=== PATIENT | female | born 1950 | race Caucasian/White ===

== ENCOUNTER → 2020-09-15 | Outpatient (CLI) | payer MEDICARE, BC ==
[~2020-09-15] MED LIST: CHLO500 PO; HORMONE CREAM; META800 PO; METPRE4DP PO; RANI150 PO; Ultram50 MG PO
[2020-09-17 12:08] LABS: ADENOVIRUS F 40/41 Not Detected (Not Detected); ASTROVIRUS Not Detected (Not Detected); C DIFFICILE TOXIN A/B Not Detected (Not Detected); CAMPYLOBACTER Not Detected (Not Detected); CRYPTOSPORIDIUM Not Detected (Not Detected); CYCLOSPORA CAYETANENSIS Not Detected (Not Detected); ENTAMOEBA HISTOLYTICA Not Detected (Not Detected); ENTEROAGGREGATIVE E COLI Not Detected (Not Detected); ENTEROPATHOGENIC E COLI Not Detected (Not Detected); ENTEROTOXIGENIC E COLI Not Detected (Not Detected); GIARDIA LAMBLIA Not Detected (Not Detected); NOROVIRUS GI/GII Not Detected (Not Detected); PLESIOMONAS SHIGELLOIDES Not Detected (Not Detected); ROTAVIRUS A Not Detected (Not Detected); SALMONELLA Not Detected (Not Detected); SAPOVIRUS Not Detected (Not Detected); SHIGA-TOXIN-PRODUCING E COLI Not Detected (Not Detected); SHIGELLA/ENTEROINVASIVE E COLI Not Detected (Not Detected); VIBRIO Not Detected (Not Detected); VIBRIO CHOLERAE Not Detected (Not Detected); YERSINIA ENTEROCOLITICA Not Detected (Not Detected)
== END ==
LOC: LAB SHORT 15:55 → OLS 15:55
PROVIDERS: Family Medicine
DX: K52.9 Noninfective gastroenteritis and colitis, unspecified (principal)
CPT/HCPCS: 0097U; 83993

== ENCOUNTER 2021-02-20 12:07 | Day surgery (SDC) | payer MEDICARE, BC ==
[~2021-02-20 12:07] MED LIST changes: +ASPIR 8181 MG PO; +Crestor20 MG PO; +FURO20 PO; +LOSARTAN-HCTZ1 EACH PO; +MERIBIN5 MG PO; +Natrol Alpha 3300 MG PO; +TIOT18 INH; +VITAMIN D310 MC5 PO; +ZYRTEC10 M2 PO
== END 2021-02-20 14:36 | disposition home or self-care (01) ==
LOC: ORSCSDS 12:07
PROVIDERS: Student in an Organized Health Care Education/Training Program
PROC: 0DJD8ZZ Inspection of Lower Intestinal Tract, Via Natural or Artificial Opening Endoscopic (ICD-10-PCS; principal; 2021-02-20 13:30)
DX: K92.1 Melena (principal); K64.8 Other hemorrhoids; Z86.010 Personal history of colon polyps; I10 Essential (primary) hypertension; G47.33 Obstructive sleep apnea (adult) (pediatric); J44.9 Chronic obstructive pulmonary disease, unspecified; E66.01 Morbid (severe) obesity due to excess calories; Z68.41 Body mass index [BMI] 40.0-44.9, adult; Z79.899 Other long term (current) drug therapy; Z79.82 Long term (current) use of aspirin; Z87.891 Personal history of nicotine dependence
CPT/HCPCS: J2704; J7120

== ENCOUNTER 2021-05-26 07:19 | Observation (INO) | payer MEDICARE, BC ==
[~2021-05-26] VITALS: Ht 162.6 cm; Wt 112.2 kg
[~2021-05-26 07:19] MED LIST changes: +ERGO400 PO; -VITAMIN D310 MC5 PO
[2021-05-26 08:33] LABS: BASOPHILS ABSOLUTE AUTO 0.04 K/mm3 (0.00-0.23); BASOPHILS PERCENT AUTO 1 % (0-2); EOSINOPHILS ABSOLUTE AUTO 0.32 K/mm3 (0.00-0.68); EOSINOPHILS PERCENT AUTO 5 % (0-6); Hematocrit 39.2 % (33.0-51.0); Hemoglobin 12.6 g/dL (11.5-16.0); IMMATURE GRAN ABSOLUTE AUTO 0.01 K/mm3 (0.00-0.10); IMMATURE GRAN PERCENT AUTO 0 % (0-1); LYMPHOCYTES ABSOLUTE AUTO 1.93 K/mm3 (0.84-5.20); LYMPHOCYTES PERCENT AUTO 32 % (21-46); MONOCYTES ABSOLUTE AUTO 0.38 K/mm3 (0.16-1.47); MONOCYTES PERCENT AUTO 6 % (4-13); Mean Corpuscular HGB 30.7 pg (26.0-34.0); Mean Corpuscular HGB Conc 32.1 g/dL (31.5-36.5); Mean Corpuscular Volume 96 fL (80-100); Mean Platelet Volume 11.5 fL (9.1-12.4); NEUTROPHILS ABSOLUTE AUTO 3.32 K/mm3 (1.96-9.15); NEUTROPHILS PERCENT AUTO 55 % (41-73); Platelet Count 166 K/mm3 (150-400); RDW Coefficient Variation 13.4 % (11.7-14.2); RDW Standard Deviation 47.6 fL (35.1-46.3)
[2021-05-26 08:58] LABS: Alanine Aminotransfer (ALT/SGP 24 U/L (12-78); Albumin, Blood 3.6 g/dL (3.4-5.0); Albumin/Globulin Ratio 1.3 (0.8-1.8); Alk Phos 43 U/L (50-136); Anion Gap 4 mmol/L (6-16); Aspartate Aminotrans (AST/SGOT 20 U/L (12-37); Bilirubin, Total 0.5 mg/dL (0.1-1.0); Blood Urea Nitrogen 20 mg/dL (8-24); Bun/Creatinine Ratio 27.5 (12.0-20.0); CO2, Blood 26 mmol/L (21-32); Calcium, Blood 9.3 mg/dL (8.5-10.1); Chloride, Blood 111 mmol/L (98-108); Creatinine, Blood 0.73 mg/dL (0.40-1.00); Globulin, Blood 2.8 g/dL (2.2-4.0); Glomerular Filtration Rate >60 (60-); Glucose, Blood 99 mg/dL (70-99); Potassium, Blood 4.3 mmol/L (3.5-5.5); Sodium, Blood 141 mmol/L (136-145); Total Protein, Blood 6.4 g/dL (6.4-8.2); Troponin I <0.015 ng/mL (0.000-0.040)
--- NOTE | 2021-05-26 14:08 | NUR ---
THIS STEM ASSEMBLER WAS ALERTED BY TELE THAT PT HR WAS LOW 48. PT IS OFF UNIT WITH NUC MED FOR FIRST PART OF TRESS TEST. CONTACTED DR. GARNER FOR DIRECTION. HE REQUESTED FOR THE PT TO COME BACK TO ROOM TO BE MONITORED. NUC MED TECH WAS NOTIFIED. I WAS ADVISED THAT OUR PT WAS IN THE PROCESS OF BEING SCANNED, MEANING PART ONE IS COMPLETE AND PT WOULD BE BACK ON THE UNIT WITHIN MINUTES. CALLED CASINO DEALER AND HR BACK IN IN THE 59-65 RANGE. SHE WILL REACH OUT IF THE PT DIPS AGAIN.....
--- NOTE | 2021-05-26 17:53 | NUR ---
PT RESTING IN BED WITH FAMILY AT SIDE. PT REMAINS ALERT AND ORIENTED X4, IND IN ROOM AND CALLS TO GET NEEDS MET. PT RUNS BRADYCARDIC IN THE 50'S AT BASELINE PER PT AND DAUGHTER. PT MAKES NO COMPLAINTS OF CHEST PAIN, SOB OR N/V AT THIS TIME. PART ONE OF STRESS TEST COMPLETED THIS SHIFT. PT TOLERATING PO FLUID AND NUTRITION WELL. NO CAFFEINE AFTER 1900 AND NPO AFTER MIDNIGHT FOR STRESS TEST PART TWO. PT BED IS IN LOW POSITION AND CALL LIGHT WITHIN REACH. STAFF WILL CONTINUE TO MONITOR FOR CHANGES.
--- NOTE | 2021-05-26 23:44 | NUR ---
2051 PT LYING IN BED, REPORTS CP OF 2/10, DESCRIBES AT TIGHTNESS. DELINED NTG AT THIS TIME. TELE SB AT 51. NO OTHER APPARENT SIGNS OF DISTRESS. CALL LIGHT IS IN REACH.
--- NOTE | 2021-05-27 03:30 | NUR ---
05/26/21 2330 PT LYING IN BED, AWAKE, WATCHING TV. NO APPARENT SIGNS OF DISTRESS. CALL LIGHT IS IN REACH.
--- NOTE | 2021-05-27 03:31 | NUR ---
0200 PT LYING IN BED, EYES CLOSED, APPEARS TO BE RESTING. WAKES EASILY TO VERBAL STIMULI. NO APPARENT SIGNS OF DISTRESS. CALL LIGHT IS IN REACH.
--- NOTE | 2021-05-27 03:32 | NUR ---
PT LYING IN BED, EYES CLOSED, APPEARS TO BE RESTING. BREATHING IS EVEN, UNLABORED. NO APPARENT SIGNS OF DISTRESS. CALL LIGHT IS IN REACH.
[2021-05-27 05:01] LABS: BASOPHILS ABSOLUTE AUTO 0.05 K/mm3 (0.00-0.23); BASOPHILS PERCENT AUTO 1 % (0-2); EOSINOPHILS ABSOLUTE AUTO 0.36 K/mm3 (0.00-0.68); EOSINOPHILS PERCENT AUTO 5 % (0-6); Hematocrit 42.4 % (33.0-51.0); Hemoglobin 13.5 g/dL (11.5-16.0); IMMATURE GRAN ABSOLUTE AUTO 0.01 K/mm3 (0.00-0.10); IMMATURE GRAN PERCENT AUTO 0 % (0-1); LYMPHOCYTES ABSOLUTE AUTO 2.41 K/mm3 (0.84-5.20); LYMPHOCYTES PERCENT AUTO 36 % (21-46); MONOCYTES ABSOLUTE AUTO 0.34 K/mm3 (0.16-1.47); MONOCYTES PERCENT AUTO 5 % (4-13); Mean Corpuscular HGB 30.5 pg (26.0-34.0); Mean Corpuscular HGB Conc 31.8 g/dL (31.5-36.5); Mean Corpuscular Volume 96 fL (80-100); Mean Platelet Volume 11.6 fL (9.1-12.4); NEUTROPHILS PERCENT AUTO 53 % (41-73); Platelet Count 191 K/mm3 (150-400); RDW Coefficient Variation 13.5 % (11.7-14.2); Red Blood Cell Count 4.42 M/mm3 (3.80-5.20); White Blood Cell Count 6.67 K/mm3 (4.00-11.30)
[2021-05-27 05:33] LABS: Alanine Aminotransfer (ALT/SGP 24 U/L (12-78); Albumin, Blood 3.7 g/dL (3.4-5.0); Albumin/Globulin Ratio 1.2 (0.8-1.8); Alk Phos 43 U/L (50-136); Anion Gap 2 mmol/L (6-16); Aspartate Aminotrans (AST/SGOT 18 U/L (12-37); Bilirubin, Total 0.4 mg/dL (0.1-1.0); Blood Urea Nitrogen 15 mg/dL (8-24); Bun/Creatinine Ratio 17.8 (12.0-20.0); CO2, Blood 30 mmol/L (21-32); Chloride, Blood 109 mmol/L (98-108); Creatinine, Blood 0.85 mg/dL (0.40-1.00); Globulin, Blood 3.1 g/dL (2.2-4.0); Glomerular Filtration Rate >60 (60-); Glucose, Blood 91 mg/dL (70-99); Sodium, Blood 141 mmol/L (136-145); Total Protein, Blood 6.8 g/dL (6.4-8.2)
--- NOTE | 2021-05-27 05:39 | NUR ---
PT IS AAO X 4, ON RA. REPORTED CP OF 2/10 THAT IS TIGHT, DECLINED NTG. TELE SB. SCD'S. PT ALSO DECLINED PAIN MEDS.
--- NOTE | 2021-05-27 06:17 | NUR ---
PT LYING IN BED, EYES CLOSED, APPEARS TO BE RESTING. BREATHING IS EVEN, UNLABORED. NO APPARENT SIGNS OF DISTRESS. CALL LIGHT IS IN REACH. NO OTHER CHANGES THIS SHIFT.
--- NOTE | 2021-05-27 15:09 | NUR ---
PATIENT D/C'D TO HOME WITH FAMILY. DC INSTRUCTIONS AND EDUCATION DISCUSSED WITH PATIENT AND COPY PROVIDED. PATIENT DENIES ANY FURTHER QUESTIONS OR CONCERNS. NO CHANGES MADE TO HOME MEDICATIONS.
== END 2021-05-27 15:10 | disposition home or self-care (01) ==
LOC: ER 07:19 → MEDS 07:20
PROVIDERS: Emergency Medicine; Student in an Organized Health Care Education/Training Program; ADMIT Internal Medicine
DX: R07.9 Chest pain, unspecified (principal); I10 Essential (primary) hypertension; R00.1 Bradycardia, unspecified; J98.11 Atelectasis; K21.9 Gastro-esophageal reflux disease without esophagitis; J44.9 Chronic obstructive pulmonary disease, unspecified; G47.33 Obstructive sleep apnea (adult) (pediatric); E78.5 Hyperlipidemia, unspecified; J30.2 Other seasonal allergic rhinitis; M79.89 Other specified soft tissue disorders; R06.00 Dyspnea, unspecified; Z88.5 Allergy status to narcotic agent; Z88.8 Allergy status to other drugs, medicaments and biological substances
CPT/HCPCS: 36415; 71045; 78452; 80053; 83690; 84484; 85025; 93005; 93010; 93017; 97116; 97161; A9270; A9500; J0280; J2405; J2785; J3010; J7030

== ENCOUNTER 2021-10-25 08:15 | Day surgery (SDC) | payer MEDICARE, BC ==
[~2021-10-25] VITALS: Ht 162.6 cm; Wt 109.8 kg
[2021-10-25] MEDS ORDERED: LOSA25 PO (08:46)
[2021-10-25] MEDS ORDERED: ZYRTEC10 M2 PO (08:46)
--- NOTE | 2021-10-25 10:54 | NUR ---
10/25/21 1054 Khushboo Isabel PT RESTING COMFORTABLY IN CHAIR. CALL LIGHT WITHIN REACH. TOLERATING PO FOOD AND FLUID. PT STATES SHE DOESN'T FEEL UP TO GETTING DRESSED YET. WILL GIVE PT A FEW MORE MINUTES TO "WAKE UP". WILL CONTINUE TO MONITOR.
== END 2021-10-25 11:30 | disposition home or self-care (01) ==
LOC: ORSCSDS 08:15
PROVIDERS: Obstetrics & Gynecology
PROC: 0UDB8ZX Extraction of Endometrium, Via Natural or Artificial Opening Endoscopic, Diagnostic (ICD-10-PCS; principal; 2021-10-25 09:30)
DX: N95.0 Postmenopausal bleeding (principal); D25.0 Submucous leiomyoma of uterus; N85.00 Endometrial hyperplasia, unspecified; I10 Essential (primary) hypertension; K21.9 Gastro-esophageal reflux disease without esophagitis; G47.33 Obstructive sleep apnea (adult) (pediatric); J44.9 Chronic obstructive pulmonary disease, unspecified; Z87.891 Personal history of nicotine dependence; Z79.899 Other long term (current) drug therapy; Z79.82 Long term (current) use of aspirin; E66.01 Morbid (severe) obesity due to excess calories; Z68.41 Body mass index [BMI] 40.0-44.9, adult
CPT/HCPCS: 88305; J0690; J1100; J1885; J2250; J2405; J2704; J3010

== ENCOUNTER 2021-12-18 06:54 | Day surgery (SDC) | payer MEDICARE, BC ==
[~2021-12-18] VITALS: Ht 160 cm; Wt 109.7 kg
[~2021-12-18 06:54] MED LIST changes: +LOSA25 PO
[2021-12-18] MEDS ORDERED: NAPR220 PO (07:17)
--- NOTE | 2021-12-18 07:52 | NUR ---
COMMUNICATED WITH PT. PT AGREES TO TAKE OXYCODONE DESPITE SENSITIVITY. DR MARQUEZ CONFIRMED WITH PT. OK TO GIVE OXYCODONE PER PT PER.
--- NOTE | 2021-12-18 18:31 | NUR ---
SHIFT SUMMARY PT ARRIVED TO UNIT AROUND 1130, VERY PAINFUL. PAIN HAS SINCE RESOLVED BUT C/O HEADACHE & FEELING VERY DROWSY. WAS ABLE TO WORK w/ THERAPY, VOID, & TOLERATE DIET.
[2021-12-19 04:45] LABS: BASOPHILS ABSOLUTE AUTO 0.01 K/mm3 (0.00-0.23); BASOPHILS PERCENT AUTO 0 % (0-2); EOSINOPHILS ABSOLUTE AUTO 0.01 K/mm3 (0.00-0.68); EOSINOPHILS PERCENT AUTO 0 % (0-6); Hematocrit 35.2 % (33.0-51.0); Hemoglobin 11.5 g/dL (11.5-16.0); IMMATURE GRAN ABSOLUTE AUTO 0.04 K/mm3 (0.00-0.10); IMMATURE GRAN PERCENT AUTO 0 % (0-1); LYMPHOCYTES ABSOLUTE AUTO 1.04 K/mm3 (0.84-5.20); LYMPHOCYTES PERCENT AUTO 9 % (21-46); MONOCYTES ABSOLUTE AUTO 0.61 K/mm3 (0.16-1.47); MONOCYTES PERCENT AUTO 5 % (4-13); Mean Corpuscular HGB 30.9 pg (26.0-34.0); Mean Corpuscular HGB Conc 32.7 g/dL (31.5-36.5); Mean Corpuscular Volume 95 fL (80-100); NEUTROPHILS PERCENT AUTO 86 % (41-73); Platelet Count 206 K/mm3 (150-400); RDW Coefficient Variation 13.3 % (11.7-14.2); RDW Standard Deviation 46.6 fL (35.1-46.3); Red Blood Cell Count 3.72 M/mm3 (3.80-5.20); White Blood Cell Count 12.21 K/mm3 (4.00-11.30)
[2021-12-19 04:56] LABS: Anion Gap 6 mmol/L (6-16); Blood Urea Nitrogen 21 mg/dL (8-24); Bun/Creatinine Ratio 26.2 (12.0-20.0); CO2, Blood 26 mmol/L (21-32); Calcium, Blood 8.6 mg/dL (8.5-10.1); Chloride, Blood 106 mmol/L (98-108); Glomerular Filtration Rate >60 (60-); Glucose, Blood 143 mg/dL (70-99); Sodium, Blood 138 mmol/L (136-145)
[2021-12-19] MEDS ORDERED: ASPI81CH PO (09:32)
[2021-12-19] MEDS ORDERED: Norco 7.5-3251 EACH PO (09:33)
--- NOTE | 2021-12-19 13:30 | NUR ---
DISCHARGE: PACKET PRINTED AND PT EDUCATED. IV DC'D WNL. PT GIVEN SCRIPTS EXTRA AQUCEL DRESSINGS. PT LEFT UNIT VIA WHEELCHAIR AT ABOUT 1230 WITH DEV ALELN.
== END 2021-12-19 13:00 | disposition home or self-care (01) ==
LOC: ORSCMMR 06:54 → ORD 08:15 → SURS 11:06 → ORSCMMR 11:06 → SURS 22:52 → ORSCMMR 12-19 13:00
PROVIDERS: Orthopaedic Surgery
PROC: 8E0Y0CZ Robotic Assisted Procedure of Lower Extremity, Open Approach (ICD-10-PCS; 2021-12-18)
PROC: 0SRC0JZ Replacement of Right Knee Joint with Synthetic Substitute, Open Approach (ICD-10-PCS; principal; 2021-12-18 08:15)
DX: M17.11 Unilateral primary osteoarthritis, right knee (principal); I10 Essential (primary) hypertension; J44.9 Chronic obstructive pulmonary disease, unspecified; G47.33 Obstructive sleep apnea (adult) (pediatric); K21.9 Gastro-esophageal reflux disease without esophagitis; E66.01 Morbid (severe) obesity due to excess calories; Z68.41 Body mass index [BMI] 40.0-44.9, adult; Z79.899 Other long term (current) drug therapy; Z79.82 Long term (current) use of aspirin
CPT/HCPCS: 27447; S2900; 36415; 73560-RT; 80048; 85025; 97110; 97116; 97162; 97530; A9270; C1776; J0171; J0690; J0735; J1100; J1170; J1885; J2250; J2405; J2704; J2795; J3010; J7120

== ENCOUNTER 2022-05-10 12:41 | Day surgery (SDC) | payer MEDICARE, BC ==
[~2022-05-10] VITALS: Ht 162.6 cm; Wt 114.3 kg
[~2022-05-10 12:41] MED LIST changes: +ASPI81CH PO; +NAPR220 PO; +Norco 7.5-3251 EACH PO
--- NOTE | 2022-05-10 14:08 | NUR ---
Ambulatory in Day Surgery. PT REPORTS HAVING CELSO SHAKE THIS AM, DR MARQUEZ NOTIFIED WHO REPORTS THAT THEY WILL PROCEED AND DO LOCAL ONLY. THIS IS WHAT THE PT UNDERSTOOD THE PLAN TO BE. History, Chart, Medications and Allergies reviewed before start of procedure.Lungs clear T/O to Auscultation. Pre-Op teaching done. Pt verbalizes understanding. Patient States Post-Procedure ride home has been arranged.
[2022-05-10] MEDS ORDERED: C COMPLEX1000 M1 PO (14:13)
--- NOTE | 2022-05-10 14:17 | NUR ---
REPORT TO N.S. WHO IS TAKING OVER CARE AT THIS TIME.
--- NOTE | 2022-05-10 15:51 | NUR ---
Discharge instructions reviewed with patient. Patient verbalizes understanding. Copy given to patient to take home. PT DENIES NEED FOR ANYTHING TO EAT OR PAIN PILL. TOLERATING WATER. RIDE HOME ON THE WAY.
--- NOTE | 2022-05-10 15:58 | NUR ---
PT DRESSED, EXTRA DRG SUPPLIES GIVEN TO PT. Discharged via wheelchair to private car for ride home.
== END 2022-05-10 16:03 | disposition home or self-care (01) ==
LOC: ORSCMMR 12:41 → ORD 14:00 → ORSCMMR 16:03
PROVIDERS: Orthopaedic Surgery
PROC: 01N50ZZ Release Median Nerve, Open Approach (ICD-10-PCS; principal; 2022-05-10 14:00)
DX: G56.02 Carpal tunnel syndrome, left upper limb (principal); I10 Essential (primary) hypertension; J44.9 Chronic obstructive pulmonary disease, unspecified; G47.33 Obstructive sleep apnea (adult) (pediatric); E78.5 Hyperlipidemia, unspecified; Z79.82 Long term (current) use of aspirin; Z79.899 Other long term (current) drug therapy
CPT/HCPCS: J2250; J2704; J2795; J3010; J7120

== ENCOUNTER 2023-12-18 11:28 | Inpatient (IN) | payer MEDICARE, BC ==
[2023-12-16 09:37] LABS: BASOPHILS ABSOLUTE AUTO 0.04 K/mm3 (0.00-0.23); BASOPHILS PERCENT AUTO 1 % (0-2); EOSINOPHILS ABSOLUTE AUTO 0.21 K/mm3 (0.00-0.68); EOSINOPHILS PERCENT AUTO 3 % (0-6); Hemoglobin 12.7 g/dL (11.5-16.0); IMMATURE GRAN ABSOLUTE AUTO 0.02 K/mm3 (0.00-0.10); IMMATURE GRAN PERCENT AUTO 0 % (0-1); LYMPHOCYTES ABSOLUTE AUTO 1.97 K/mm3 (0.84-5.20); LYMPHOCYTES PERCENT AUTO 31 % (21-46); MONOCYTES ABSOLUTE AUTO 0.44 K/mm3 (0.16-1.47); MONOCYTES PERCENT AUTO 7 % (4-13); Mean Corpuscular HGB 30.7 pg (26.0-34.0); Mean Corpuscular HGB Conc 32.6 g/dL (31.5-36.5); Mean Corpuscular Volume 94 fL (80-100); Mean Platelet Volume 10.7 fL (9.1-12.4); NEUTROPHILS ABSOLUTE AUTO 3.71 K/mm3 (1.96-9.15); NEUTROPHILS PERCENT AUTO 58 % (41-73); Platelet Count 220 K/mm3 (150-400); RDW Coefficient Variation 13.3 % (11.7-14.2); RDW Standard Deviation 45.8 fL (35.1-46.3); Red Blood Cell Count 4.14 M/mm3 (3.80-5.20); White Blood Cell Count 6.39 K/mm3 (4.00-11.30)
[2023-12-16 09:51] LABS: Bun/Creatinine Ratio 33.9 (12.0-20.0); Calcium, Blood 9.8 mg/dL (8.5-10.1); Creatinine, Blood 1.21 mg/dL (0.40-1.00); Potassium, Blood 4.1 mmol/L (3.5-5.5)
[~2023-12-18] VITALS: Ht 162.6 cm; Wt 120.2 kg
[2023-12-18] VITALS (18 sets, daily range): BP systolic 95–159; BP diastolic 38–64
[~2023-12-18 11:28] MED LIST changes: +C COMPLEX1000 M1 PO
[2023-12-18] MEDS ORDERED: CeFAZolin Sodium 3,000 MG in NS 100 ML IV SCH (12:25)
[2023-12-18] MEDS ORDERED: Lactated Ringer's 1,000 ML IV SCH ×2 (12:25→23:30)
[2023-12-18] MEDS ORDERED: Bupivacaine 0.5% HCl 5 MG/ML 30MLVIAL ONE (13:04)
[2023-12-18] MEDS ORDERED: propofoL 40 ML IV ONE (14:29)
[2023-12-18] MEDS ORDERED: FentaNYL Citrate 50 MCG/ML 2 ML Injection ONE ×3 (14:29→19:10)
[2023-12-18] MEDS ORDERED: Rocuronium Bromide 10 MG/ML 5ML Injection IV ONE ×2 (14:30→15:43)
[2023-12-18] MEDS ORDERED: Glycopyrrolate 0.2 MG/ML 5ML VIAL ONE (15:08)
[2023-12-18] MEDS ORDERED: Dexamethasone Sod Phos 10 MG/ML 1ML VIAL ONE (18:07)
[2023-12-18] MEDS ORDERED: Metoclopramide HCl 5MG / ML 2ML Vial ONE (18:07)
[2023-12-18] MEDS ORDERED: Ondansetron HCl 2 MG / ML 2ML Vial ONE (18:07)
[2023-12-18] MEDS ORDERED: ePHEDrine Sulfate 50 MG/ML 1ML Injection ONE (18:12)
[2023-12-18] MEDS ORDERED: Sugammadex Sodium 200 MG/2ML SDV (100 MG/ML) ONE ×2 (18:25→18:37)
[2023-12-18] MEDS ORDERED: NS 500 ML IV ONE (22:30)
[2023-12-18] MEDS ORDERED: Simethicone 80 MG Chew PO PRN (23:25)
[2023-12-18] MEDS ORDERED: OxyCODONE 5 mg/Acetamin 325 mg TABLET PO PRN (23:30)
[2023-12-18] MEDS ORDERED: Promethazine HCl 25 MG Tab PO PRN (23:35)
[2023-12-18] MEDS ORDERED: FentaNYL Citrate 50 MCG/ML 2 ML Injection IV PRN (23:35)
[2023-12-18] MEDS ORDERED: Ondansetron HCl 2 MG / ML 2ML Vial IV PRN (23:35)
[2023-12-19] VITALS (10 sets, daily range): BP systolic 104–131; BP diastolic 42–54
[2023-12-19] MEDS ORDERED: Ketorolac Tromethamine 30mg Vial IV SCH
[2023-12-19] MEDS ORDERED: NS 500 ML IV ONE (01:45)
[2023-12-19 04:47] LABS: BASOPHILS ABSOLUTE AUTO 0.02 K/mm3 (0.00-0.23); BASOPHILS PERCENT AUTO 0 % (0-2); EOSINOPHILS ABSOLUTE AUTO 0.01 K/mm3 (0.00-0.68); EOSINOPHILS PERCENT AUTO 0 % (0-6); Hematocrit 28.6 % (33.0-51.0); Hemoglobin 9.6 g/dL (11.5-16.0); IMMATURE GRAN ABSOLUTE AUTO 0.03 K/mm3 (0.00-0.10); IMMATURE GRAN PERCENT AUTO 0 % (0-1); LYMPHOCYTES ABSOLUTE AUTO 0.76 K/mm3 (0.84-5.20); LYMPHOCYTES PERCENT AUTO 6 % (21-46); MONOCYTES ABSOLUTE AUTO 0.21 K/mm3 (0.16-1.47); MONOCYTES PERCENT AUTO 2 % (4-13); Mean Corpuscular HGB 31.4 pg (26.0-34.0); Mean Corpuscular HGB Conc 33.6 g/dL (31.5-36.5); Mean Corpuscular Volume 94 fL (80-100); Mean Platelet Volume 10.5 fL (9.1-12.4); NEUTROPHILS ABSOLUTE AUTO 11.69 K/mm3 (1.96-9.15); NEUTROPHILS PERCENT AUTO 92 % (41-73); Platelet Count 221 K/mm3 (150-400); RDW Coefficient Variation 13.5 % (11.7-14.2); RDW Standard Deviation 46.4 fL (35.1-46.3); Red Blood Cell Count 3.06 M/mm3 (3.80-5.20); White Blood Cell Count 12.72 K/mm3 (4.00-11.30)
[2023-12-19 06:19] LABS: Bilirubin, Total 0.4 mg/dL (0.1-1.0); Bun/Creatinine Ratio 24.6 (12.0-20.0); Calcium, Blood 7.7 mg/dL (8.5-10.1); Creatinine, Blood 1.38 mg/dL (0.40-1.00); Globulin, Blood 3.1 g/dL (2.2-4.0); Potassium, Blood 4.2 mmol/L (3.5-5.5); Total Protein, Blood 6.1 g/dL (6.4-8.2)
--- NOTE | 2023-12-19 08:37 | NUR ---
SUMMARY PT WITH HYPOTENSION,LOW MAP, ABNORMAL KIDNEY FUNCTION TESTS.PT WAS UNABLE TO TOLERATE FOR OOB TO BSC.PT BECAME INCREASINGLY PALE AND DIZZY,PLACED PT BACK TO BED. PT WITH NO VOID TONIGHT ALTHOUGH MULTIPLE CALLS TO DOCTOR AARON TO ADVISE OF ASSESSMENT,VS,LABS AND LACK OF VOIDING. SEE BLADDER SCAN X 3. DR AWARE OF RESULTS. LATEST BLADDER SCAN AFTER 2 BOLUS OF 500 ML EACH WAS 287. DISCUSSED WITH PT AND FAMILY IN LENGTH NURSING ASSESSMENT,CONSIDERATIONS, VS INCLUDING MAPS AND SIGNIFICANCE OF VS AND LABS AND ASSESSMENT ALSO DISCUSSED IMPORTANCE OF INCREASED URINARY VOLUME AND BLADDER EMPTYING. ALL LABS REVIEWED WITH DR WALKER AND POPSTOP CHEM PROFILE ADDED PLUS REPEAT HEMOGRAM @1100 REGARDING DETERMINATION IF PT IS HEMODYNAMICALY STABLE.PT INITIALLY HAD SCANT VAG DRNG, BUT HAS NOT HAD ANY FURTHER AT SHIFT CHANGE.PT REPORTS USES NAPROXEN 2 TABS BID AT HOME.DISCUSSED RISKS REGARDING LABS AND DISCUSSED WITH PT ADVISABLE TO SPEAK WITH HER PCP AFTER DISCHARGE REGARDING LABS AND NAPROXEN.PT VERB UNDERSTANDING OF EDUCATION.
--- NOTE | 2023-12-19 09:42 | NUR ---
BLADDER: BP IMPROVING. CONT IV FLUIDS. PT HAS HAD NO VOID YET. WILL COMPLETE BLADDER SCAN AND AMBULATE PT TO COMMODE TO ATTEMPT VOID.
[2023-12-19 11:10] LABS: Hematocrit 27.7 % (33.0-51.0); Hemoglobin 9.1 g/dL (11.5-16.0); Mean Corpuscular HGB 31.3 pg (26.0-34.0); Mean Corpuscular HGB Conc 32.9 g/dL (31.5-36.5); Mean Corpuscular Volume 95 fL (80-100); Mean Platelet Volume 10.4 fL (9.1-12.4); Platelet Count 217 K/mm3 (150-400); RDW Coefficient Variation 13.5 % (11.7-14.2); RDW Standard Deviation 47.2 fL (35.1-46.3); Red Blood Cell Count 2.91 M/mm3 (3.80-5.20); White Blood Cell Count 12.69 K/mm3 (4.00-11.30)
[2023-12-19] MEDS ORDERED: Ibuprofen 400 MG Tab PO PRN (16:00)
--- NOTE | 2023-12-19 16:00 | NUR ---
URINE OUTPUT: STRAIGHT CATH PER DOCTORS ORDERS SINCE PT HAS NOT VOIDED ON HER OWN. 500CC OUTPUT. PT IV SL AT THIS TIME. PT HAS STARTED TO DEVELOP SOME SWELLING IN FACE AND LEGS. WILL CONT TO MONITOR I+O.
--- NOTE | 2023-12-19 18:28 | NUR ---
PT HAS BEEN STABLE THIS SHIFT. PT POD #1 LAP HYSTER AND OOPHERECTOMY. PT UP TO CHAIR FOR SEVERAL HOURS TODAY. DIZZINESS IMPROVED. 2 PERSON ASSIST OOB. PT DID NOT VOID ON OWN TODAY. STRAIGHT CATH THIS AFTERNOON. PT S.L. AT THIS POINT. PT ON 2L O2. STARTING TO HAVE INCREASED RR AND AND MORE WORK OF BREATHING. PT HAS MILD SWELLING IN FEET, FACE AND HANDS. PERCOCET FOR PAIN, EFFECTIVE. KPAD AND BINDER IN USE FOR PAIN RELIEF. ABD SITES WNL x4. POOR APPETITE. NO FLATUS YET POST OP. PT USES CALL LIGHT APPROPRIATELY. FAMILY INVOLVED IN CARE.
--- NOTE | 2023-12-19 23:00 | NUR ---
PHYSICIAN COMMUNICATION ROUGHLY AROUND 2229 DR WALKER CALLED & ORDERED BLADDER SCAN Q2-4HR, ALONG c STRAIGHT CATH FOR AMOUNT >400. STATED HE ORDERED AM LABS & WOULD LIKE 2 300ML BOLUS T/O NIGHT. INFORMED MD I WOULD UPDATE PRIMARY RN CHRYSTAL Rascon OF ORDERS.
--- NOTE | 2023-12-19 23:00 | NUR ---
UPDATE BLADDER SCAN DONE PER MD ORDER, 453 ML'S SEEN ON SCAN, PT WAS ABLE TO VOID 350 ML'S POST SCAN IN BSC, DENIES PAIN. ASSISTED BACK TO BED, 300ML BOLUS X2 ORDERED BY MD PER THIRD MILLER,BILAT LUNG SOUNDS REMAIN DIMINISHED, DYSPNEA W EXERTION, RA @ BASELINE, WILL HOLD OFF ON FLUID BOLUS PER CLINICAL JUDGEMENT AT THIS TIME, WCTM, CALL LIGHT IN REACH.
[2023-12-20 02:21] VITALS: BP 124/45
--- NOTE | 2023-12-20 04:39 | NUR ---
SHIFT SUMMARY POD #2 LAP HYSTER LAP SITES C/D/I, ABD BINDER IN PLACE, YANELI SIPS WATER, PASSING FLATUS, PT BEGAN VOIDING ON HER OWN, APPROX 400 ML'S AT A TIME, CLOUDY YELLOW, SCANT VAGINAL DRAINAGE (PINK), JEREMIAS PAD/MESH PANTIES IN PLACE, SBA TO BATHROOM, PT STATES PAIN WNL, KPAD TO ABD, LUNG SOUNDS DIM/BILAT, O2 @ 2L VIA NC, INCENTIVE SPIROMETER ENC, WCTM & REPORT TO DAY RN, CALL LIGHT IN REACH
[2023-12-20 06:15] LABS: BASOPHILS ABSOLUTE AUTO 0.02 K/mm3 (0.00-0.23); BASOPHILS PERCENT AUTO 0 % (0-2); EOSINOPHILS ABSOLUTE AUTO 0.03 K/mm3 (0.00-0.68); EOSINOPHILS PERCENT AUTO 0 % (0-6); Hematocrit 23.2 % (33.0-51.0); Hemoglobin 7.7 g/dL (11.5-16.0); IMMATURE GRAN ABSOLUTE AUTO 0.04 K/mm3 (0.00-0.10); IMMATURE GRAN PERCENT AUTO 0 % (0-1); LYMPHOCYTES ABSOLUTE AUTO 1.81 K/mm3 (0.84-5.20); LYMPHOCYTES PERCENT AUTO 19 % (21-46); MONOCYTES ABSOLUTE AUTO 0.64 K/mm3 (0.16-1.47); MONOCYTES PERCENT AUTO 7 % (4-13); Mean Corpuscular HGB 30.9 pg (26.0-34.0); Mean Corpuscular HGB Conc 33.2 g/dL (31.5-36.5); Mean Corpuscular Volume 93 fL (80-100); Mean Platelet Volume 10.2 fL (9.1-12.4); NEUTROPHILS ABSOLUTE AUTO 6.99 K/mm3 (1.96-9.15); NEUTROPHILS PERCENT AUTO 73 % (41-73); Platelet Count 174 K/mm3 (150-400); RDW Coefficient Variation 13.4 % (11.7-14.2); RDW Standard Deviation 46.2 fL (35.1-46.3); Red Blood Cell Count 2.49 M/mm3 (3.80-5.20); White Blood Cell Count 9.53 K/mm3 (4.00-11.30)
[2023-12-20 06:44] LABS: Albumin, Blood 3.1 g/dL (3.4-5.0); Albumin/Globulin Ratio 1.1 (0.8-1.8); Bilirubin, Total 0.4 mg/dL (0.1-1.0); Calcium, Blood 7.4 mg/dL (8.5-10.1); Creatinine, Blood 1.41 mg/dL (0.40-1.00); Globulin, Blood 2.9 g/dL (2.2-4.0); Potassium, Blood 3.9 mmol/L (3.5-5.5)
[2023-12-20 07:45] VITALS: BP 127/54
[2023-12-20] MEDS ORDERED: Furosemide 20 MG Tab PO SCH (09:00)
[2023-12-20 13:51] LABS: BASOPHILS ABSOLUTE AUTO 0.03 K/mm3 (0.00-0.23); BASOPHILS PERCENT AUTO 0 % (0-2); EOSINOPHILS ABSOLUTE AUTO 0.05 K/mm3 (0.00-0.68); EOSINOPHILS PERCENT AUTO 1 % (0-6); Hematocrit 26.3 % (33.0-51.0); Hemoglobin 8.3 g/dL (11.5-16.0); IMMATURE GRAN ABSOLUTE AUTO 0.04 K/mm3 (0.00-0.10); IMMATURE GRAN PERCENT AUTO 0 % (0-1); LYMPHOCYTES ABSOLUTE AUTO 1.68 K/mm3 (0.84-5.20); LYMPHOCYTES PERCENT AUTO 17 % (21-46); MONOCYTES ABSOLUTE AUTO 0.61 K/mm3 (0.16-1.47); MONOCYTES PERCENT AUTO 6 % (4-13); Mean Corpuscular HGB Conc 31.6 g/dL (31.5-36.5); Mean Platelet Volume 10.7 fL (9.1-12.4); NEUTROPHILS ABSOLUTE AUTO 7.23 K/mm3 (1.96-9.15); NEUTROPHILS PERCENT AUTO 75 % (41-73); Platelet Count 161 K/mm3 (150-400); RDW Coefficient Variation 13.6 % (11.7-14.2); RDW Standard Deviation 48.6 fL (35.1-46.3); Red Blood Cell Count 2.68 M/mm3 (3.80-5.20); White Blood Cell Count 9.64 K/mm3 (4.00-11.30)
[2023-12-20 13:52] LABS: Mean Corpuscular Volume 98 fL (80-100)
[2023-12-20 15:38] VITALS: BP 139/49
[2023-12-20 19:44] VITALS: BP 133/64
--- NOTE | 2023-12-20 19:48 | NUR ---
SHIFT SUMMARY POD 2 LAP HYSTER PT AMBULATING WELL DURING SHIFT. NO WEAKNESS. ATTEMPTING TO WEAN OXYGEN. SLIGHT DESAT WHEN LAYING DOWN TO SLEEP. OTHERWISE TOLERATING WELL. DENIED PAIN DURING SHIFT. TOLERATING DIET WELL. HAD MODERATE DRAINAGE ON INITIAL AMBULATION THIS AM, HAS SINCE HAD SCANT TO NO DRAINAGE ON JEREMIAS PADS. HGB IMPROVED ON CHECK THIS AFTERNOON. PT REPORTS FEELING BETTER.
[2023-12-21] VITALS (14 sets, daily range): BP systolic 91–146; BP diastolic 43–62
--- NOTE | 2023-12-21 05:15 | NUR ---
SHIFT SUMMARY POD #3 NO ACUTE CHANGES THROUGH THE NIGHT, A&O X4, VSS, 2 L O2 VIA NC FOR COMFORT WHILE SLEEPING, YANELI PO, VOIDING WNL, PASSING FLATUS, SBA W FWW, PAIN WNL, LAP SITES C/D/I, CALL LIGHT IN REACH,
[2023-12-21 06:37] LABS: BASOPHILS ABSOLUTE AUTO 0.04 K/mm3 (0.00-0.23); BASOPHILS PERCENT AUTO 1 % (0-2); EOSINOPHILS ABSOLUTE AUTO 0.15 K/mm3 (0.00-0.68); EOSINOPHILS PERCENT AUTO 2 % (0-6); Hematocrit 23.2 % (33.0-51.0); Hemoglobin 7.4 g/dL (11.5-16.0); IMMATURE GRAN ABSOLUTE AUTO 0.02 K/mm3 (0.00-0.10); IMMATURE GRAN PERCENT AUTO 0 % (0-1); LYMPHOCYTES ABSOLUTE AUTO 1.88 K/mm3 (0.84-5.20); LYMPHOCYTES PERCENT AUTO 26 % (21-46); MONOCYTES ABSOLUTE AUTO 0.57 K/mm3 (0.16-1.47); MONOCYTES PERCENT AUTO 8 % (4-13); Mean Corpuscular HGB 31.2 pg (26.0-34.0); Mean Corpuscular HGB Conc 31.9 g/dL (31.5-36.5); Mean Corpuscular Volume 98 fL (80-100); Mean Platelet Volume 10.5 fL (9.1-12.4); NEUTROPHILS ABSOLUTE AUTO 4.54 K/mm3 (1.96-9.15); NEUTROPHILS PERCENT AUTO 63 % (41-73); Platelet Count 164 K/mm3 (150-400); RDW Coefficient Variation 13.6 % (11.7-14.2); RDW Standard Deviation 48.6 fL (35.1-46.3); Red Blood Cell Count 2.37 M/mm3 (3.80-5.20)
[2023-12-21 07:17] LABS: Alanine Aminotransfer (ALT/SGP 13 U/L (12-78); Alk Phos 43 U/L (50-136); Anion Gap Unable to Calculate mmol/L (6-16); Aspartate Aminotrans (AST/SGOT 17 U/L (12-37); Bilirubin, Total 0.4 mg/dL (0.1-1.0); Blood Urea Nitrogen 27 mg/dL (8-24); Bun/Creatinine Ratio 28.2 (12.0-20.0); CO2, Blood 30 mmol/L (21-32); Calcium, Blood 7.9 mg/dL (8.5-10.1); Chloride, Blood 111 mmol/L (98-108); Creatinine, Blood 0.96 mg/dL (0.40-1.00); Globulin, Blood 3.1 g/dL (2.2-4.0); Glomerular Filtration Rate 62 (60-); Glucose, Blood 102 mg/dL (70-99); Potassium, Blood 4.2 mmol/L (3.5-5.5); Sodium, Blood 140 mmol/L (136-145); Total Protein, Blood 6.1 g/dL (6.4-8.2)
[2023-12-21] MEDS ORDERED: NS 250 ML IV PRN (11:10)
--- NOTE | 2023-12-21 12:38 | NUR ---
BLOOD TRANSFUSION BLOOD VERIFIED WITH NAYELI RN AND CASSY RN, LUNG SOUNDS CLEAR, HR IN THE 70S. PATIENT DENIES N/T, ITCHING, SOB, CHEST PAIN/PRESSURE. TEMP 97.8 RR 18, BP 91/53. PATIENT IS AOX4, CALL LIGHT IS IN REACH.
--- NOTE | 2023-12-21 14:31 | NUR ---
BLOOD PATIENT PERIPHERAL IV INFILTRATED, BLOOD WAS STOPPED, NEW POWER GLIDE WAS INITIATED AND BLOOD WAS RESTARTED PATIENT DENIES SOB, NO SWELLING NOTED IN PERIPHERAL SITE. IV TAKEN OUT INTACT WITH NO COMPLICATIONS. LUNG SOUNDS CLEAR. NO FEVER. BP 112/43
--- NOTE | 2023-12-21 17:38 | NUR ---
SHIFT SUMMARY PATIENT IS AOX4, POD3 LAVH. LAP SITES X4 C/D/I. DOG BARBER. ABD BINDER IN PLACE. PATIENT RECIEVED 2 UNITS OF PRBC. REPEAT LABS IN AM. PATIENT VITALS STABLE. TOLERATES BLOOD PRODUCT WELL. ON 2L NC FOR COMFORT AND DYSPNEA ON EXERTION. SATS REMAIN 95 AND ABOVE. LUNG SOUNDS CLEAR. RECIEVED LASIX AND VOIDING WELL. PASSING FLATUS, SCANT SPOTTING ON JEREMIAS PADS. DENIES PAIN, N/V. TOLERATING REG DIET. CALL LIGHT IN REACH.
[2023-12-22 00:30] VITALS: BP 140/50
[2023-12-22 02:53] VITALS: BP 138/65
[2023-12-22 05:38] LABS: BASOPHILS ABSOLUTE AUTO 0.05 K/mm3 (0.00-0.23); BASOPHILS PERCENT AUTO 1 % (0-2); EOSINOPHILS ABSOLUTE AUTO 0.26 K/mm3 (0.00-0.68); EOSINOPHILS PERCENT AUTO 3 % (0-6); Hematocrit 27.5 % (33.0-51.0); Hemoglobin 9.1 g/dL (11.5-16.0); IMMATURE GRAN ABSOLUTE AUTO 0.04 K/mm3 (0.00-0.10); IMMATURE GRAN PERCENT AUTO 1 % (0-1); LYMPHOCYTES ABSOLUTE AUTO 2.16 K/mm3 (0.84-5.20); LYMPHOCYTES PERCENT AUTO 26 % (21-46); MONOCYTES ABSOLUTE AUTO 0.61 K/mm3 (0.16-1.47); MONOCYTES PERCENT AUTO 7 % (4-13); Mean Corpuscular HGB 31.2 pg (26.0-34.0); Mean Corpuscular HGB Conc 33.1 g/dL (31.5-36.5); Mean Corpuscular Volume 94 fL (80-100); Mean Platelet Volume 10.4 fL (9.1-12.4); NEUTROPHILS ABSOLUTE AUTO 5.32 K/mm3 (1.96-9.15); NEUTROPHILS PERCENT AUTO 63 % (41-73); Platelet Count 172 K/mm3 (150-400); RDW Standard Deviation 48.1 fL (35.1-46.3); Red Blood Cell Count 2.92 M/mm3 (3.80-5.20); White Blood Cell Count 8.44 K/mm3 (4.00-11.30)
[2023-12-22 06:13] LABS: Bilirubin, Total 0.6 mg/dL (0.1-1.0); Bun/Creatinine Ratio 24.6 (12.0-20.0); Creatinine, Blood 0.81 mg/dL (0.40-1.00); Potassium, Blood 4.1 mmol/L (3.5-5.5)
--- NOTE | 2023-12-22 06:36 | NUR ---
SHIFT SUMMARY POD 4 LAP HYSTER, LAP SITES C/D/I, ABD BINDER IN PLACE, PAIN WNL, VSS, YANELI PO, VOIDING WNL, SCANT BLEEDING NOTED, HGB 9.1 THIS AM, SBA W FWW, RESTING QUIETLY THIS AM, WCTM & REPORT, CALL LIGHT IN REACH
[2023-12-22 07:10] VITALS: BP 142/47
--- NOTE | 2023-12-22 13:24 | NUR ---
WONDERMENDY IN TO SEE PT.
[2023-12-22 14:00] VITALS: BP 140/54
[2023-12-22] MEDS ORDERED: Percocet 5-3251 EACH PO (14:03)
[2023-12-22] MEDS ORDERED: PROM25 PO (14:03)
[2023-12-22] MEDS ORDERED: SIME80CH PO (14:04)
[2023-12-22 14:13] VITALS: BP 140/54
--- NOTE | 2023-12-22 14:20 | NUR ---
DISCHARGED DC'D POWERGLIDE, CATHETER INTACT. REVIEWED DC INSTRUCTIONS W/PT; VERBALIZED UNDERSTANDING. PT LEFT UNIT IN WC W/POSSESSIONS AND DC PAPERWORK TO MEET RIDE WAITING OUTSIDE.
== END 2023-12-22 14:24 | disposition home or self-care (01) | DRG 742 ==
LOC: ORSCMMR 11:28 → ORD 13:00 → ORSCMMR 13:00 → SURS 21:49
PROVIDERS: ADMIT Obstetrics & Gynecology
PROC: 0UT74ZZ Resection of Bilateral Fallopian Tubes, Percutaneous Endoscopic Approach (ICD-10-PCS; 2023-12-18)
PROC: 0UT24ZZ Resection of Bilateral Ovaries, Percutaneous Endoscopic Approach (ICD-10-PCS; 2023-12-18)
PROC: 8E0W4CZ Robotic Assisted Procedure of Trunk Region, Percutaneous Endoscopic Approach (ICD-10-PCS; 2023-12-18)
PROC: 0TJB8ZZ Inspection of Bladder, Via Natural or Artificial Opening Endoscopic (ICD-10-PCS; 2023-12-18)
PROC: 0UT94ZZ Resection of Uterus, Percutaneous Endoscopic Approach (ICD-10-PCS; principal; 2023-12-18 13:00)
PROC: 30233N1 Transfusion of Nonautologous Red Blood Cells into Peripheral Vein, Percutaneous Approach (ICD-10-PCS; 2023-12-21)
DX: D25.0 Submucous leiomyoma of uterus (principal); Q43.8 Other specified congenital malformations of intestine; N95.0 Postmenopausal bleeding; D25.9 Leiomyoma of uterus, unspecified; N80.00 Endometriosis of the uterus, unspecified; I10 Essential (primary) hypertension; J44.9 Chronic obstructive pulmonary disease, unspecified; K21.9 Gastro-esophageal reflux disease without esophagitis; M81.0 Age-related osteoporosis without current pathological fracture; Z88.8 Allergy status to other drugs, medicaments and biological substances; Z88.5 Allergy status to narcotic agent; Z88.6 Allergy status to analgesic agent; Z79.82 Long term (current) use of aspirin
CPT/HCPCS: 36415; 36430; 80048; 80053; 85025; 85027; 86850; 86900; 86901; 86923; 88307; A9270; C1751; G0378; J0690; J1100; J1885; J2405; J2704; J2765; J3010; J7040; J7120; P9016

== ENCOUNTER → 2025-08-15 | Outpatient (CLI) | payer MEDICARE, BC ==
[~2025-08-15] MED LIST changes: +PROM25 PO; +Percocet 5-3251 EACH PO; +SIME80CH PO
== END ==
LOC: LAB SHORT 15:11 → LAB 15:11
DX: N39.0 Urinary tract infection, site not specified (principal)
CPT/HCPCS: 87077; 87086; 87186

== ENCOUNTER → 2025-08-29 | Outpatient (CLI) | payer MEDICARE, BC ==
[2025-08-29 12:08] LABS: BASOPHILS ABSOLUTE AUTO 0.04 K/mm3 (0.00-0.23); BASOPHILS PERCENT AUTO 1 % (0-2); EOSINOPHILS ABSOLUTE AUTO 0.20 K/mm3 (0.00-0.68); EOSINOPHILS PERCENT AUTO 3 % (0-6); Hematocrit 41.1 % (33.0-51.0); Hemoglobin 13.6 g/dL (11.5-16.0); IMMATURE GRAN ABSOLUTE AUTO 0.02 K/mm3 (0.00-0.10); IMMATURE GRAN PERCENT AUTO 0 % (0-1); LYMPHOCYTES ABSOLUTE AUTO 2.12 K/mm3 (0.84-5.20); LYMPHOCYTES PERCENT AUTO 32 % (21-46); MONOCYTES ABSOLUTE AUTO 0.50 K/mm3 (0.16-1.47); MONOCYTES PERCENT AUTO 8 % (4-13); Mean Corpuscular HGB Conc 33.1 g/dL (31.5-36.5); Mean Corpuscular Volume 94 fL (80-100); NEUTROPHILS ABSOLUTE AUTO 3.79 K/mm3 (1.96-9.15); NEUTROPHILS PERCENT AUTO 57 % (41-73); NRBC ABSOLUTE 0.00 K/mm3 (0.00-0.02); NRBC Auto 0.0 /100 WBC (0.0-0.2); Platelet Count 162 K/mm3 (150-400); RDW Coefficient Variation 12.9 % (11.7-14.2); RDW Standard Deviation 44.4 fL (35.1-46.3)
[2025-08-29 12:16] LABS: Alanine Aminotransfer (ALT/SGP 26.0 U/L (12-78); Albumin, Blood 4.0 g/dL (3.4-5.0); Albumin/Globulin Ratio 1.3 (0.8-1.8); Anion Gap 14.0 mmol/L (3-11); Aspartate Aminotrans (AST/SGOT 24.0 U/L (12-37); Bilirubin, Total 0.5 mg/dL (0.1-1.0); Blood Urea Nitrogen 27.0 mg/dL (8-24); CO2, Blood 26.0 mmol/L (21-32); Calcium, Blood 9.3 mg/dL (8.5-10.1); Chloride, Blood 109.0 mmol/L (98-108); Creatinine, Blood 1.02 mg/dL (0.40-1.00); Globulin, Blood 3.1 g/dL (2.2-4.0); Glucose, Blood 96.0 mg/dL (70-99); Potassium, Blood 4.8 mmol/L (3.5-5.5); Sodium, Blood 144.0 mmol/L (136-145); Total Protein, Blood 7.1 g/dL (6.4-8.2)
== END ==
LOC: LAB SHORT 12:01 → LAB 12:01
PROVIDERS: Physician Assistant
DX: R06.02 Shortness of breath (principal)
CPT/HCPCS: 80053; 83880; 84484; 85025